=== PATIENT | female | born 2000 | race Caucasian/White ===

== ENCOUNTER 2023-04-05 14:45 | Emergency (ER) | payer MEDICAID ==
[~2023-04-05] VITALS: Ht 165.1 cm; Wt 76.8 kg
[2023-04-05 15:48] VITALS: BP 127/79; PULSE 93; RESP 17; TEMP 98.3; O2SAT 97
== END 2023-04-05 17:22 | disposition home or self-care (01) ==
LOC: ER 14:46
DX: H61.23 Impacted cerumen, bilateral (principal); H92.02 Otalgia, left ear
CPT/HCPCS: 69209; 99282